=== PATIENT | male | born 1960 | race Two or more races ===

== ENCOUNTER 2017-12-06 13:20 | Emergency (ER) | payer BC ==
[~2017-12-06] VITALS: Ht 152.4 cm; Wt 99.8 kg
[2017-12-06] MEDS ORDERED: ZOCOR20 MG PO (13:44)
== END 2017-12-06 18:46 | disposition home or self-care (01) ==
LOC: ER 13:20
DX: I24.9 Acute ischemic heart disease, unspecified (principal); R07.89 Other chest pain